=== PATIENT | female | born 1985 | race Caucasian/White ===

== ENCOUNTER 2017-10-24 19:43 | Emergency (ER) | payer MEDICAID ==
[~2017-10-24] VITALS: Ht 157.5 cm; Wt 60.8 kg
[~2017-10-24 19:43] MED LIST: FERR324T20 PO; PREN-385 PO
[2017-10-24 19:48] VITALS: BP 107/60
--- NOTE | 2017-10-24 19:54 | NUR ---
PT AMBULATED TO ER BED 04
--- NOTE | 2017-10-24 20:00 | NUR ---
32/F CAME IN WITH FRIEND, C/O "MODERATE PINKISH-RED" VAGINAL BLEEDING, SINCE AFTERNOON. PT REPORTS 7/10 CRAMPING SUPRAPUBIC PAIN, RADIATING TO LOWER ABD. PT'S BEDSIDE +, LMP AUG 21. PT DENIES CP, SOB, N/V/D. PT DENIES MED HX, RX. NKA. ER MD DR MEEHAN AWARE.
[2017-10-24 20:35] LABS: BASOPHILS # (AUTO) 0.2 K/uL (0.00-0.22); EOSINOPHILS # (AUTO) 0.1 K/uL (0-0.4); HEMATOCRIT 38.1 % (36-48); HEMOGLOBIN 12.5 g/dL (12.0-16.0); LYMPHOCYTES # (AUTO) 2.4 K/uL (2.5-16.5); MEAN CORPUSCULAR HEMOGLOBIN 29 pg (27-31); MEAN CORPUSCULAR HGB CONC 33 g/dL (33-37); MEAN CORPUSCULAR VOLUME 88.5 fL (80-94); MONOCYTES # (AUTO) 0.6 K/uL (0.8-1.0); NEUTROPHILS # (AUTO) 5.2 K/uL (1.8-7.7); PLATELET COUNT (AUTO) 310 K/uL (140-450); RED BLOOD CELL COUNT(AUTO) 4.31 MIL/uL (4.20-5.40); WHITE BLOOD COUNT (AUTO) 8.5 K/uL (4.8-10.8)
[2017-10-24 20:50] LABS: APPEARANCE,URINE CLEAR (CLEAR); BILIRUBIN,URINE NEGATIVE (NEGATIVE); BLOOD, URINE TRACE-I (NEGATIVE); COLOR,URINE YELLOW (YELLOW); LEUKOCYTE ESTERASE ,URINE NEGATIVE (NEGATIVE); NITRITE, URINE NEGATIVE (NEGATIVE); PH,URINE 5.5 (5.0-9.0); UGLUCOSE NEGATIVE (NEGATIVE)
[2017-10-24 20:50] LABS: ANION GAP 15.4 (8-16); CARBON DIOXIDE 25.5 mmol/L (21-32); CREATININE 0.6 mg/dL (0.6-1.3); POTASSIUM 3.9 mmol/L (3.5-5.1)
[2017-10-24 20:53] LABS: RBC,URINE 0-5 (RARE) /HPF (0-5); WBC,URINE 0-5 (RARE) /HPF (0-5)
[2017-10-24 20:54] LABS: ALBUMIN 3.5 g/dL (3.4-5.0); TOTAL BILIRUBIN 0.1 mg/dL (0.0-1.0)
--- NOTE | 2017-10-24 21:34 | NUR ---
PT RESTING BED COMFORTABLY, REPORTS TOLERABLE PAIN. RR EVEN AND UNLABORED. ALL NEEDS MET.
--- NOTE | 2017-10-24 21:50 | NUR ---
Pelvic exam performed by dr ramirez with me at bedside for entire examination. Patient tolerated procedure well. Patient assisted to position of comfort after examination.vag swab was done, and sent to lab
[2017-10-24] MEDS ORDERED: FLUCONAZOLE 100 MG TAB PO ONE (22:30)
[2017-10-24] MEDS ORDERED: FLUCONAZOLE 100 MG TAB ONE (22:44)
--- NOTE | 2017-10-24 22:51 | NUR ---
DIFLUCAN 150MG UNAVAILABLE FROM [employer] AT THIS TIME, RECEIVED 2 TABLETS DIFLUCAN PO FROM [employer]. ADMINISTERED 150MG DIFLUCAN PO ORDERED WITH EDUCATION AT THIS TIME. PT TOLERATED WELL.
[2017-10-24 23:00] VITALS: BP 100/70
--- NOTE | 2017-10-24 23:10 | NUR ---
Patient discharged with v/s stable. Written and verbal after care instructions given and explained. Patient verbalized understanding. Ambulatory with steady gait. All questions addressed prior to discharge. Advised to follow up with PMD.
[2017-10-27 16:08] LABS: CHLAMYDIA TRACHOMATIS AMP DNA Negative (Negative)
== END 2017-10-24 23:10 | disposition home or self-care (01) ==
LOC: MED 19:43
DX: O20.0 Threatened abortion (principal); O98.811 Other maternal infectious and parasitic diseases complicating pregnancy, first trimester; B37.9 Candidiasis, unspecified; Z3A.09 9 weeks gestation of pregnancy; Z79.899 Other long term (current) drug therapy
CPT/HCPCS: 36415; 76817; 80053; 81001; 81025; 84702; 85025; 86900; 86901; 87210; 99285; Q0092; 87491

== ENCOUNTER 2017-12-11 03:51 | Emergency (ER) | payer MEDICAID ==
[~2017-12-11] VITALS: Ht 157.5 cm; Wt 63.7 kg
[2017-12-11 03:55] VITALS: BP 102/82
[2017-12-11] MEDS ORDERED: MORPHINE SULFATE 2 MG/ML SYR IVP ONE (04:20)
[2017-12-11] MEDS ORDERED: diphenhydrAMINE 50 MG/ML VIAL IVP ONE (04:20)
[2017-12-11 04:43] LABS: BASOPHILS % (AUTO) 0.7 % (0.0-2.0); EOSINOPHILS # (AUTO) 0.1 K/uL (0-0.4); EOSINOPHILS % (AUTO) 1.8 % (0.0-4.0); HEMATOCRIT 36.2 % (36-48); HEMOGLOBIN 11.9 g/dL (12.0-16.0); LYMPHOCYTES # (AUTO) 2.4 K/uL (2.5-16.5); LYMPHOCYTES % (AUTO) 33.9 % (20.5-51.1); MEAN CORPUSCULAR HEMOGLOBIN 30 pg (27-31); MEAN CORPUSCULAR HGB CONC 33 g/dL (33-37); MEAN CORPUSCULAR VOLUME 89.7 fL (80-94); MONOCYTES # (AUTO) 0.6 K/uL (0.8-1.0); MONOCYTES % (AUTO) 8.8 % (1.7-9.3); NEUTROPHILS # (AUTO) 3.9 K/uL (1.8-7.7); NEUTROPHILS % (AUTO) 54.8 % (42.2-75.2); PLATELET COUNT (AUTO) 283 K/uL (140-450); RED BLOOD CELL COUNT(AUTO) 4.04 MIL/uL (4.20-5.40); RED CELL DISTRIBUTION WIDTH 14.6 % (11.6-13.7)
[2017-12-11 04:48] LABS: APPEARANCE,URINE CLOUDY (CLEAR); BILIRUBIN,URINE NEGATIVE (NEGATIVE); BLOOD, URINE NEGATIVE (NEGATIVE); COLOR,URINE YELLOW (YELLOW); LEUKOCYTE ESTERASE ,URINE 3+ (NEGATIVE); NITRITE, URINE NEGATIVE (NEGATIVE); PH,URINE 6.5 (5.0-9.0); UGLUCOSE NEGATIVE (NEGATIVE)
[2017-12-11 05:07] LABS: RBC,URINE 3-10 (FEW) /HPF (0-5)
[2017-12-11 05:09] LABS: YEAST,URINE Moderate /HPF (None Seen)
[2017-12-11 05:49] VITALS: BP 100/55
== END 2017-12-11 05:49 | disposition home or self-care (01) ==
LOC: MED 03:51
DX: O23.42 Unspecified infection of urinary tract in pregnancy, second trimester (principal); O46.8X2 Other antepartum hemorrhage, second trimester; O98.812 Other maternal infectious and parasitic diseases complicating pregnancy, second trimester; B37.3 Candidiasis of vulva and vagina; Z3A.16 16 weeks gestation of pregnancy; Z79.899 Other long term (current) drug therapy
CPT/HCPCS: 36415; 76817; 81001; 84702; 85025; 86900; 86901; 87086; 99285; Q0092

== ENCOUNTER 2018-01-06 19:59 | Emergency (ER) | payer OTHER ==
[~2018-01-06] VITALS: Ht 157.5 cm; Wt 65.3 kg
[2018-01-06 17:48] VITALS: BP 105/63
[2018-01-06 20:00] VITALS: BP 99/40
== END 2018-01-06 21:05 | disposition left against medical advice (07) ==
LOC: MED 19:59 → EDSTATUS 19:59 → MED 21:05
DX: N89.8 Other specified noninflammatory disorders of vagina (principal); Z53.21 Procedure and treatment not carried out due to patient leaving prior to being seen by health care provider
CPT/HCPCS: 76805; 81002; 81025; 99281; Q0092

== ENCOUNTER 2018-01-13 20:29 | Emergency (ER) | payer OTHER ==
[~2018-01-13] VITALS: Ht 154.9 cm; Wt 68.3 kg
[2018-01-13 20:39] VITALS: BP 109/59
--- NOTE | 2018-01-13 20:44 | NUR ---
TO LOBBY A/W BED, ALFREDO KUMAR NOTED
--- NOTE | 2018-01-13 21:38 | NUR ---
PT TAKEN TO BED 6
--- NOTE | 2018-01-13 21:40 | NUR ---
PATIENT PRESENTS TO ED WITH URINARY BURNING, ITCHING AND VAGINAL ODOR X2 WEEKS. PATIENT STATES SHE DOES NOT HAVE TIME TO SEE A REGULAR OB DOCTOR. PT DENIES N/V/D; SKIN IS PINK/WARM/DRY; AAOX4 WITH EVEN AND STEADY GAIT; LUNGS CLEAR BL; HR EVEN AND REGULAR; PT DENIES ANY FEVER, CP, SOB, OR COUGH AT THIS TIME; PATIENT STATES PAIN OF 0/10 AT THIS TIME; VSS; PATIENT POSITIONED FOR COMFORT; HOB ELEVATED; BEDRAILS UP X1; BED DOWN. ER MD MADE AWARE OF PT STATUS.
--- NOTE | 2018-01-13 22:05 | NUR ---
Dr. Gray evaluating patient at bedside.
[2018-01-13 22:18] VITALS: BP 109/59
--- NOTE | 2018-01-13 22:18 | NUR ---
Patient does not wish to proceed with medical care recommended by ER MD DR BROWER. Patient given information related to possible complications, up to and including , which could occur as a result of leaving hospital at this time. Patient verbalizes understanding of risks involved leaving against medical advice. Patient has signed AMA form.
--- NOTE | 2018-01-13 22:31 | NUR ---
DR. DAS STATES PATIENT SHOULD BE TRANSFERRED TO LABOR AND DELIVERY FOR EVALUATION AND MONITORING. PATIENT STATES SHE DOES NOT WANT TO GO. PATIENT STATES SHE WOULD RATHER LEAVE THAN BE TRANSFERRED TO LABOR AND DELIVERY. PATIENT HAS BEEN ADVISED OF POSSIBLE RISKS OF LEAVING WITHOUT BEING EVALUATED BY LABOR AND DELIVERY AND HAS CHOSEN TO SIGN OUT AGAINST MEDICAL ADVICE.
== END 2018-01-13 22:18 | disposition left against medical advice (07) ==
LOC: MED 20:29
DX: O26.892 Other specified pregnancy related conditions, second trimester (principal); N89.8 Other specified noninflammatory disorders of vagina; R30.9 Painful micturition, unspecified; Z3A.21 21 weeks gestation of pregnancy
CPT/HCPCS: 81002; 81025; 99281; 99282